=== PATIENT | male | born 1975 | race Caucasian/White ===

== ENCOUNTER 2021-06-03 19:30 | Emergency (ER) | payer OTHER, BC ==
[2021-06-03] MEDS ORDERED: HYDROCODON-ACE1 EAC2 PO (20:54)
== END 2021-06-03 21:07 | disposition home or self-care (01) ==
LOC: ER1 19:30
DX: S42.001A Fracture of unspecified part of right clavicle, initial encounter for closed fracture (principal); F17.210 Nicotine dependence, cigarettes, uncomplicated; V49.40XA Driver injured in collision with unspecified motor vehicles in traffic accident, initial encounter; Y92.410 Unspecified street and highway as the place of occurrence of the external cause
CPT/HCPCS: 71045; 73000; 73030; 96374; 96375; 99283; J2270; J2405